=== PATIENT | male | born 1980 | race African-American/Black ===

== ENCOUNTER 2018-11-14 11:39 | Emergency (ER) | payer OTHER ==
--- NOTE | 2018-11-14 11:55 | UC ---
Skin Complaint HPI - HPI Summary HPI Summary: 38 yo male presents with hives. He tells me that he had an allergic reaction to laundry detergent about 10 years ago that went away when he changed his detergent back. Today he tells me that yesterday he woke up with hives to his right neck and back of his neck. He applied some OTC cortisone cream with mild relief. Today he noticed some hives on his arms. He has not had any swelling, throat swelling, SOB, chest pain, or difficulty breathing. He has had no new clothing items, detergents, soaps, or exposures that he is aware of. - History of Current Complaint Chief Complaint: UCSkin Time Seen by Provider: 11/14/18 11:55 Stated Complaint: HIVES Hx Obtained From: Patient Onset/Duration: Sudden Onset Current Severity: None Pain Intensity: 0 - Allergy/Home Medications Allergies/Adverse Reactions: Allergies Allergy/AdvReac Type Severity Reaction Status Date / Time No Known Allergies Allergy Verified 11/14/18 11:55 PMH/Surg Hx/FS Hx/Imm Hx - Additional Past Medical History Additional PMH: None - Surgical History Surgical History: None - Family History Known Family History: Positive: Non-Contributory - Social History Occupation: Employed Full-time Lives: With Family Alcohol Use: Occasionally Substance Use Type: None Smoking Status (MU): Former Smoker Review of Systems All Other Systems Reviewed And Are Negative: No Constitutional: Positive: Negative Skin: Positive: Other - Hives ENT: Positive: Negative Respiratory: Positive: Negative Cardiovascular: Positive: Negative Gastrointestinal: Positive: Negative Neurovascular: Positive: Negative Neurological: Positive: Negative Psychological: Positive: Negative Physical Exam - Summary Physical Exam Summary: GENERAL: NAD. WDWN. No distress. SKIN: Cluster of urticaria on right neck and posterior neck. Scattered scant urticaria on b/l forearms. No open wounds, drainage, or streaking. HEENT: No periorbital, lip, or other facial edema. Airway patent without oropharyngeal edema. NECK: Supple. Nontender. No lymphadenopathy. CHEST: CTAB. No wheezing. No accessory muscle use. Breathing comfortably and in no distress. CV: RRR. Pulses intact. Cap refill <2seconds NEURO: Alert. PSYCH: Age appropriate behavior. Triage Information Reviewed: Yes Vital Signs: Initial Vital Signs Temp 97.3 F 11/14/18 11:52 Pulse 89 11/14/18 11:52 Resp 18 11/14/18 11:52 BP 132/100 11/14/18 11:52 Pulse Ox 100 11/14/18 11:52 Vital Signs: Temp Pulse Resp BP Pulse Ox 97.3 F 89 18 140/92 100 11/14/18 11:52 11/14/18 11:52 11/14/18 11:52 11/14/18 12:01 11/14/18 11:52 Vital Signs Reviewed: Yes Course/Dx - Course Course Of Treatment: Allergic reaction. Advised to take a daily benadryl Rx for prednisone and kenalog - Diagnoses Provider Diagnosis: Urticaria Discharge ED - Sign-Out/Discharge Documenting (check all that apply): Patient Departure All imaging exams completed and their final reports reviewed: No Studies - Discharge Plan Condition: Stable Disposition: HOME Prescriptions: predniSONE TAB* [Deltasone 20 MG TAB*] 60 mg PO DAILY #15 tab Triamcinolone 0.1% CREAM(NF) [Kenalog Cream 0.1%(NF)] 1 applic TOPICAL BID #1 tube Patient Education Materials: Urticaria (ED) Referrals: No Primary Care Phys,NOPCP [Primary Care Provider] - Additional Instructions: If you develop a fever, shortness of breath, chest pain, new or worsening symptoms - please call your PCP or go to the ED immediately. Your blood pressure was high at todays visit. Please see your primary provider within 4 weeks for recheck and re-evaluation. - Take prednisone exactly as prescribed until gone - Okay to take Benadryl 25mg every 6 hours as needed for itching and hives. This medication may cause drowsiness - do NOT drive, operate machinery or drink alcohol while taking Benadryl -Avoid getting over-heated (hot showers, hot tubs, exercise) for at least 48 hours - Try to avoid aspirin, NSAIDs (Motrin, Aleve, Naprosyn) for 2-3 days - Okay to apply cool compresses to the area of injury -Contact your doctor or return here with questions or concerns - Billing Disposition and Condition Condition: STABLE Disposition: Home - Attestation Statements Provider Attestation: I was available for consult. This patient was seen by the [facility]. The patient was not presented to, seen by, or examined by me. -Sadie
[2018-11-14 12:01] VITALS: BP 140/92
== END 2018-11-14 12:22 | disposition home or self-care (01) ==
LOC: UCEAST 11:39
DX: L50.9 Urticaria, unspecified (principal); Z87.891 Personal history of nicotine dependence
CPT/HCPCS: 99202; G0463